=== PATIENT | female | born 1985 | race African-American/Black ===

== ENCOUNTER 2024-08-21 13:25 | Emergency (ER) | payer SELFPAY ==
[~2024-08-21] VITALS: Ht 162.6 cm; Wt 80.0 kg
[2024-08-21 13:27] VITALS: O2SAT 100
[2024-08-21] MEDS ORDERED: LORAZEPAM 2MG/ML INJ IV STA (14:15)
[2024-08-21 15:04] LABS: BASOPHILS % 0.4 % (0.0-2.0); EOSINOPHILS % 0.2 % (0.0-5.0); HEMATOCRIT. 40.8 % (36.0-48.0); HEMOGLOBIN. 13.2 g/dL (12.0-16.0); LYMPHOCYTES % 12.5 % (20.0-50.0); MEAN CORPUSCULAR HEMOGLOBIN 29.3 pg (28.0-32.0); MEAN CORPUSCULAR HGB CONC 32.4 g/dL (31.0-37.0); MEAN CORPUSCULAR VOLUME 90.5 fL (81.0-99.0); MEAN PLATELET VOLUME 9.4 fl (7.4-10.4); NEUTROPHILS % 81.9 % (40.0-76.0); PLATELET 322 x1000/uL (130-400); RED CELL DISTRIBUTION WIDTH 13.9 % (11.6-14.6)
[2024-08-21 15:10] LABS: CHLORIDE 106 mEq/L (98-107); POTASSIUM 3.5 mEq/L (3.5-5.1); SODIUM 142 mEq/L (136-145)
[2024-08-21 15:11] LABS: CARBON DIOXIDE 31 mEq/L (21-32)
[2024-08-21 15:12] LABS: HCG SCREEN NEGATIVE
[2024-08-21 15:16] LABS: CREATININE 0.9 mg/dL (0.6-1.0); GLUCOSE 112 mg/dL (70-105); UREA NITROGEN BLOOD 13 mg/dL (9-23)
[2024-08-21 15:18] LABS: ACETAMINOPHEN < 2 ug/mL (10-30)
[2024-08-21 15:22] LABS: ETHANOL BLOOD < 10 mg/dL (<10)
[2024-08-21 15:34] LABS: HEPATITIS B SURFACE ANTIGEN NEGATIVE (Negative)
[2024-08-21 15:54] LABS: HEPATITIS A AB IGM NEGATIVE (Negative)
[2024-08-21 15:55] LABS: HEPATITIS B CORE AB IGM NEGATIVE (Negative); HEPATITIS C AB NON REACTIVE (Neg) (Negative)
[2024-08-21] MEDS: SODIUM CHLORIDE 0.9% 1,000 ML IV ONE (16:37)
[2024-08-21 18:15] VITALS: BP 125/69; PULSE 70; RESP 15; TEMP 36.61404; O2SAT 98
[2024-08-21 18:15] LABS: *AMPHETAMINES SCREEN URINE NEGATIVE (NEGATIVE)
[2024-08-21 18:16] LABS: *BARBITURATES SCREEN URINE NEGATIVE (NEGATIVE); *BENZODIAZEPINES SCREEN URINE NEGATIVE (NEGATIVE); *COCAINE SCREEN URINE NEGATIVE (NEGATIVE); CANNABINOID URINE SCREEN PRESUMPTIVE POSITIVE (NEGATIVE); ECSTASY MDMA SCREEN URINE NEGATIVE (NEGATIVE); METHADONE URINE SCREEN NEGATIVE (NEGATIVE); OPIATES URINE SCREEN NEGATIVE (NEGATIVE); PHENCYCLIDINE URINE SCREEN NEGATIVE (NEGATIVE)
== END 2024-08-21 19:30 ==
LOC: ER 13:49
DX: F12.929 Cannabis use, unspecified with intoxication, unspecified (principal); R11.0 Nausea
CPT/HCPCS: 80305; 80048; 80307; 80329; 80320; 82962; 84703; 85025; 87340; 36415; 86705; 86709; 93005; 96360; 99284; J7030; Z7610 ×2; G0480